=== PATIENT | female | born 2000 | race Asian ===

== ENCOUNTER 2023-07-31 09:55 | Outpatient (REF) | payer BC, SELFPAY ==
--- NOTE | ~2023-07-31 | US_ITS ---
EXAM: Pelvic Ultrasound CLINICAL INDICATION: Pelvic pain and bleeding COMPARISON: None available TECHNIQUE: The pelvis was evaluated using transabdominal and transvaginal imaging. FINDINGS: The uterus measures 7.2 x 3.1 x 2.9 cm in longitudinal by AP by transverse dimension. The endometrial stripe is not thickened and measures 0.7 cm. IUD within the uterus appears abnormally positioned. It is low-lying and partially within the cervix. The IUD is also positioned within the posterior aspect of the endometrium and angles slightly to the left of midline. The left ovary measures approximately 2.1 x 1.8 x 1.4 cm and contains a simple appearing 1 cm cyst versus dominant follicle. The right ovary measures approximately 3.0 x 1.9 x 1.6 cm and is also normal. There are no abnormal adnexal masses. There is no free fluid in the pelvis. US/US pelvic and transvaginal IMPRESSION: Abnormally positioned IUD. It is low-lying and partially within the cervix. The IUD is also positioned within the posterior aspect of the endometrium and angles slightly to the left of midline. Repositioning is recommended. Cross-sectional imaging can always be obtained for further evaluation if clinically indicated.
== END 2023-07-31 09:56 | disposition home or self-care (01) ==
LOC: HO.UMASIMG 09:55
PROVIDERS: Visit Provider Nurse Practitioner Women's Health
DX: R10.2 Pelvic and perineal pain (principal); N92.6 Irregular menstruation, unspecified
CPT/HCPCS: 76830; 76856